=== PATIENT | female | born 1960 | race Caucasian/White ===

== ENCOUNTER 2024-09-08 14:01 | Emergency (ER) | payer BC, SELFPAY ==
[2024-09-08 14:10] VITALS: BMI 25.1
[2024-09-08 14:17] VITALS: BP 142/73
--- NOTE | 2024-09-08 14:38 | ED.GENMED ---
History of Present Illness
<Deacon Holloway Jr., PA-C - Last Filed: 09/08/24 16:27>
General
Chief Complaint: Allergic Reaction
Source: patient, family and ambulance crew
Exam Limitations: none
Time Seen by Provider: 09/08/24 14:19
Nursing documentation reviewed up to this point in time: agreed with
History of Present Illness
History of Present Illness:
64-year-old female presenting via EMS with concerns of allergic reaction. She was stung on the left ankle by a bee. Has no history of allergy to bee stings. Start developing a localized rash and then this developed into a more diffuse rash into
her upper extremities. She then started noticing hoarseness to her voice over the next few minutes she then went to an urgent care at that point they deemed that she would likely had anaphylaxis and was given a dose of epinephrine and IM Benadryl
50. EMS was called and she was also given 10 mg of IV dexamethasone en route. At this point she is feeling much better does have some ongoing hoarseness of her voice but the rash has mostly subsided other than to the local area of the medial left
ankle. She denies any significant shortness of breath abdominal pain nausea vomiting or diarrhea. No lightheadedness.
Review of Systems
<Deacon Holloway Jr., PA-C - Last Filed: 09/08/24 16:27>
Review of Systems
Allergies reviewed?: Yes
All Other Systems: ROS reviewed and negative except as documented in HPI and ROS
Phy Exam
<Deacon Holloway Jr., PA-C - Last Filed: 09/08/24 16:27>
Physical Exam
Physical Exam:
GENERAL: Alert , in no apparent distress
EYE: pupils equal and reactive
NECK: Supple, no significant adenopathy.
ENT: o/p clr, mmm.
CARDIAC: Regular rate and rhythm .
LUNGS: Clear breath sounds bilaterally, no acute respiratory distress, no wheezes/rales/rhonchi
ABDOMEN: Soft, without focal tenderness, no r/g, no cvat
NEUROLOGICAL: Alert and oriented, no focal neuro deficits
SKIN: Localized rash to the left medial ankle roughly 5 cm in total diameter. No tenderness. Good range of motion of the ankle. Warm and dry, skin intact.
MUSCULOSKELETAL: No edema, well perfused.
PSYCH: Normal and appropriate interaction.
Course
<Deacon Holloway Jr., PA-C - Last Filed: 09/08/24 16:27>
Orders/Labs/Results
Orders:
Orders
09/08/24
Electrocardiogram (*1) Stat
Comment: DONE
Vital Signs
Initial and Last Documented VS:
Initial Vital Signs
Pulse Ox
99
09/08/24 14:12
Last Documented Vital Signs
Pulse Resp BP Pulse Ox
71 18 118/67 96
09/08/24 16:00 09/08/24 16:00 09/08/24 16:00 09/08/24 16:00
<Charles Heredia DO - Last Filed: 09/08/24 16:06>
Orders/Labs/Results
Orders:
Orders
09/08/24
Electrocardiogram (*1) Stat
Comment: DONE
Vital Signs
Initial and Last Documented VS:
Initial Vital Signs
Pulse Ox
99
09/08/24 14:12
Last Documented Vital Signs
Pulse Resp BP Pulse Ox
71 18 118/67 96
09/08/24 16:00 09/08/24 16:00 09/08/24 16:00 09/08/24 16:00
<Yisel Balbuena PA-C - Last Filed: 09/09/24 01:46>
Orders/Labs/Results
Orders:
Orders
09/08/24
Electrocardiogram (*1) Stat
Comment: DONE
Vital Signs
Initial and Last Documented VS:
Initial Vital Signs
Pulse Ox
99
09/08/24 14:12
Last Documented Vital Signs
Pulse Resp BP Pulse Ox
71 18 118/67 96
09/08/24 16:00 09/08/24 16:00 09/08/24 16:00 09/08/24 16:00
<Deacon Holloway Jr., PA-C - Last Filed: 09/08/24 16:27>
MDM/Problems Addressed
MDM/Problems Addressed:
64-year-old female presenting to the emergency department today with concerns of allergic reaction to a bee sting about an hour ago. She received an epinephrine dose as well as Benadryl and IV dexamethasone about an hour prior to my assessment.
Has had significant improvement since dosing. Here patient generally well-appearing does have some mild hoarseness to her voice and a localized rash to the left medial ankle. Patient as described has improving symptoms at this point. Plan to
observe for multiple hours to ensure allergic reaction is improving.
<Deacon Holloway Jr., PA-C - Last Filed: 09/08/24 16:27>
*Pulse Oximetry
SaO2: 97
Oxygen Mode of Delivery: Room air
<Yisel Balbuena PA-C - Last Filed: 09/09/24 01:46>
*Pulse Oximetry
Patient hypoxic: no
*Critical Care Note
Total Time (30-74mins, 75-104mins- exclusive of procedures): Not Applicable
<Yisel Balbuena PA-C - Last Filed: 09/09/24 01:46>
Update Note
Update Note:
Update 6:19 PM: Received patient in signout. I reassessed patient at 4-hour mariely following arrival to the emergency department. She remains asymptomatic and in no apparent distress. Her vital signs are normal. No evidence of hives. Her lungs
are clear bilaterally. No evidence of tongue/lip swelling. At this point�feel stable for discharge home with very strict return precautions and close monitoring. Advised to follow-up with primary care and medical officer psychiatry. Prescription sent to pharmacy
including oral steroids, Pepcid, Zyrtec, and EpiPen. Patient comfortable with discharge home
ED Attending Note
<Deacon Holloway Jr., PAMary - Last Filed: 09/08/24 16:27>
-
Portions of this chart may have been created with voice recognition software.� Occasional wrong word or��sound alike� substitutions may have occurred due to the inherent limitations of voice recognition software.
<Charles Heredia DO - Last Filed: 09/08/24 16:06>
ED Attending Note
Patient seen and examined by attending physician: Yes
I performed the substantive portion of visit, reviewed & personally made and approve the management plan that is documented in note by myself or MADIE.: Yes
ED Attending Note:
Patient presents with allergic reaction to a bee sting. She developed hives, hoarseness, given Benadryl, epi, Decadron prehospital.
Rash improving after treatment. Respiratory status stable. Will require 4-hour period of observation before determining whether she can be discharged or not
Discharge Plan
Departure
Patient Disposition: Home (Routine Discharge)
Date of Disposition: 09/08/24
Time of Disposition: 18:33
Patient with high blood pressure during this ER visit?: No
Condition: Good
Covid-19: Not Applicable
Discharge Problem:
Anaphylactic reaction, Bee sting
Instructions: Anaphylaxis
Prescriptions:
New
cetirizine [Zyrtec] 10 mg tablet
10 mg PO BID 4 Days Qty: 8 0RF
prednisone 20 mg tablet
40 mg PO DAILY 4 Days Qty: 8 0RF
famotidine 20 mg tablet
20 mg PO BID 4 Days Qty: 8 0RF
epinephrine [Auvi-Q] 0.3 mg/0.3 mL auto-injector
0.3 mg IM Q5-15M PRN (Reason: anaphylaxis) Qty: 2 0RF
No Action
vitamin B complex 1 TAB tablet
1 tab PO DAILY
Calcium
0.25 tsp PO BID
Patient Comments:
takes powder form
Coliodal Silver
1 tsp PO BID
Dhl Nanoplex
1 tsp PO DAILY
Human Growth Horomone
7 tab PO DAILY
Patient Comments:
pt thinks name of all natural vitamin is called [facility]; ordered from Chiropractor
Referrals:
Shell Luong CRNP [Family Provider, Family Practice]
Activity Restrictions/Additional Instructions:
You came to the emergency department today with concerns of an allergic reaction. Please take the prescribed medications. Please take Zyrtec twice daily for the next 4 days as well as famotidine twice daily for the next 4 days and prednisone 40 mg
once daily for the next 4 days. Please follow close with your primary care doctor within the next week or so for reassessment. Return for any worsening, new or concerning symptoms.
Interventions
Interventions:
*Risk Screen - Suicide Last Done: 09/08/24 14:12
*General Assessment Last Done: 09/08/24 14:12
*Neglect/Abuse Screening Last Done: 09/08/24 14:12
*ED- Fall Risk Assessment Last Done: 09/08/24 14:12
*ED COVID-19 Vaccine History Last Done: 09/08/24 14:12
*Nursing Disposition Last Done: 09/08/24 19:29
ED- Cardiac Assessment Last Done: 09/08/24 14:12
ED- Pulmonary Assessment Last Done: 09/08/24 14:12
ED-Skin Assessment Last Done: 09/08/24 14:12
Discharge Date and Time
Discharge Date/Time: 09/08/24 19:30
Print Language: EMIRATI
[2024-09-08 15:00] VITALS: BP 115/53
[2024-09-08 16:00] VITALS: BP 118/67
== END 2024-09-08 19:30 | disposition home or self-care (01) ==
LOC: EMR 14:01
PROVIDERS: EMERGENCY PHYSICIAN Emergency Medicine; FAMILY PHYSICIAN Nurse Practitioner
DX: T63.441A Toxic effect of venom of bees, accidental (unintentional), initial encounter (principal); R49.0 Dysphonia; R21 Rash and other nonspecific skin eruption
CPT/HCPCS: 99283; 93005

== ENCOUNTER 2025-02-09 12:59 | Emergency (ER) | payer BC, SELFPAY ==
[2025-02-09 13:12] VITALS: BP 161/81
--- NOTE | 2025-02-09 13:54 | ED.GENMED ---
History of Present Illness
General
Chief Complaint: Fall
Time Seen by Provider: 02/09/25 13:21
History of Present Illness
History of Present Illness:
64-year-old female presents to the emergency department for evaluation of a head injury with amnesia. Patient tripped and fell onto a tile floor last night and has amnesia to the event, does not recall anything until she woke up this morning. Per
family was not visibly unconscious at the time. She denies any double vision, significant neck pain, or extremity paresthesias. Does not take blood thinners or aspirin.
Review of Systems
Review of Systems
Allergies reviewed?: Yes
All Other Systems: ROS reviewed and negative except as documented in HPI and ROS
Phy Exam
Physical Exam
Physical Exam:
GEN: Well appearing, NAD, WDWN
HEENT: No signs of cranial trauma, small abrasion to the nasal bridge with minimal swelling, no gross deformity, oral mucosa moist, no scleral icterus, no nasal congestion
Cardiac: Regular rate
Lung: No respiratory distress, no tachypnea
MSK: No gross deformity or injuries, no midline cervical or thoracic spine tenderness, normal cervical spine range of motion
Skin: Good color, no pallor or jaundice, no rashes
Neuro: AO x3; CN II-XII grossly intact. BUE strength 5/5 in all clobert, sensation intact and symmetric. BLE strength 5/5 in all colbert, sensation intact and symmetric
Psych: Calm, cooperative
Course
Orders/Labs/Results
Orders:
Orders
02/09/25 13:15
CT Head W/o Iv Contrast Urgent
Comment:
Reason For Exam: fall/face trauma/+LOC
Vital Signs
Initial and Last Documented VS:
Initial Vital Signs
Temp Pulse Resp BP Pulse Ox
98 F 76 16 161/81 99
02/09/25 13:12 02/09/25 13:12 02/09/25 13:12 02/09/25 13:12 02/09/25 13:12
Last Documented Vital Signs
Temp Pulse Resp BP Pulse Ox
98.2 F 75 18 139/73 100
02/09/25 14:19 02/09/25 14:19 02/09/25 14:19 02/09/25 14:19 02/09/25 14:19
MDM/Problems Addressed
MDM/Problems Addressed:
CT shows no evidence for intracranial hemorrhage or skull fracture. Patient is alert and oriented with a normal neurologic exam. No midline cervical spine tenderness or upper extremity paresthesias concerning for C-spine injury.
*Pulse Oximetry
SaO2: 99
Oxygen Mode of Delivery: Room air
Patient hypoxic: no
*Critical Care Note
Total Time (30-74mins, 75-104mins- exclusive of procedures): Not Applicable
ED Attending Note
-
Portions of this chart may have been created with voice recognition software.� Occasional wrong word or��sound alike� substitutions may have occurred due to the inherent limitations of voice recognition software.
Discharge Plan
Departure
Patient Disposition: Home (Routine Discharge)
Date of Disposition: 02/09/25
Time of Disposition: 15:54
Patient with high blood pressure during this ER visit?: No
Discharge Problem:
Concussion
Instructions: Concussion, Adult (DC)
Prescriptions:
No Action
vitamin B complex 1 TAB tablet
1 tab PO DAILY
Calcium
0.25 tsp PO BID
Patient Comments:
takes powder form
Coliodal Silver
1 tsp PO BID
Dhl Nanoplex
1 tsp PO DAILY
Human Growth Horomone
7 tab PO DAILY
Patient Comments:
pt thinks name of all natural vitamin is called [facility]; ordered from Chiropractor
cetirizine [Zyrtec] 10 mg tablet
10 mg PO BID 4 Days Qty: 8 0RF
prednisone 20 mg tablet
40 mg PO DAILY 4 Days Qty: 8 0RF
famotidine 20 mg tablet
20 mg PO BID 4 Days Qty: 8 0RF
epinephrine [Auvi-Q] 0.3 mg/0.3 mL auto-injector
0.3 mg IM Q5-15M PRN (Reason: anaphylaxis) Qty: 2 0RF
Referrals:
Shell Luong CRNP [Family Provider, Family Practice]
Interventions
Interventions:
*Risk Screen - Suicide Last Done: 02/09/25 13:12
*General Assessment Last Done: 02/09/25 16:01
*Neglect/Abuse Screening Last Done: 02/09/25 13:12
*ED COVID-19 Vaccine History Last Done: 02/09/25 14:19
*ED Influenza Vaccine History Last Done: 02/09/25 14:19
[facility] Fall Risk Assessment Tool Last Done: 02/09/25 14:19
*Nursing Disposition Last Done: 02/09/25 16:01
ED-Musculoskeletal Assessment Last Done: 02/09/25 14:19
ED- Neurological Assessment Last Done: 02/09/25 14:19
ED-Skin Assessment Last Done: 02/09/25 14:19
Discharge Date and Time
Discharge Date/Time: 02/09/25 16:02
Print Language: [id number]
[2025-02-09 14:19] VITALS: BP 139/73
== END 2025-02-09 16:02 | disposition home or self-care (01) ==
LOC: EMR 12:59
PROVIDERS: EMERGENCY PHYSICIAN Emergency Medicine; FAMILY PHYSICIAN Nurse Practitioner
DX: S06.0XAA Concussion with loss of consciousness status unknown, initial encounter (principal); S00.31XA Abrasion of nose, initial encounter; W01.198A Fall on same level from slipping, tripping and stumbling with subsequent striking against other object, initial encounter
CPT/HCPCS: 99284; 70450